=== PATIENT | female | born 1970 ===

== ENCOUNTER 2020-12-05 10:36 | Outpatient (CLI) | payer BC, SELFPAY ==
--- NOTE | 2020-12-05 16:05 | DI.RAD_ITS ---
Exam(s) XR ELBOW LT COMPLETE EXAM: XR ELBOW LT COMPLETE CLINICAL HISTORY: LT ELBOW JT PAIN, M25.522. TECHNIQUE: 2D digital imaging was performed. COMPARISON: No exams were available for comparison FINDINGS: There are no obvious fracture lines evident, however there is elevated both the anterior and posterio r fat pads indicating elbow joint effusion. There is no swelling of the olecranon bursa. Calcificat ion is seen in the lateral subcutaneous soft tissues. IMPRESSION: As above. Suspect subtle impacted fracture of the radial neck DATA REPOSITORY: RADIATION DOSE DELIVERED:
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
== END 2020-12-05 10:56 ==
PROVIDERS: Visit Provider Nurse Practitioner Family
DX: S59.802A Other specified injuries of left elbow, initial encounter (principal); E65 Localized adiposity; V29.9XXA Motorcycle rider (driver) (passenger) injured in unspecified traffic accident, initial encounter
CPT/HCPCS: 73080